=== PATIENT | female | born 1965 | race American Indian/Alaskan Native ===

== ENCOUNTER 2017-11-24 22:31 | Emergency (ER) | payer OTHER ==
[2017-11-24] MEDS ORDERED: NACL 0.9% 1000 ML 1,000 ML IV ONE (23:04)
[2017-11-24] MEDS ORDERED: ZOFRAN IV ONE (23:04)
[2017-11-24 23:25] LABS: Basophils # (Auto) 0.1 K/mm3 (0.0-0.1); Basophils % (Auto) 0.7 % (0.0-1.8); Hematocrit 38.9 % (30.3-42.9); Hemoglobin 12.9 gm/dl (10.1-14.3); Lymphocytes # (Auto) 1.5 K/mm3 (1.2-5.4); Lymphocytes % (Auto) 14.6 % (13.4-35.0); Mean Corpuscular HGB Conc 33 % (30-34); Mean Corpuscular Hemoglobin 27 pg (28-32); Mean Corpuscular Volume 83 fl (79-97); Monocytes # (Auto) 0.5 K/mm3 (0.0-0.8); Monocytes % (Auto) 4.6 % (0.0-7.3); Platelet Count 287 K/mm3 (140-440); Red Blood Count 4.72 M/mm3 (3.65-5.03); Red Cell Distribution Width 13.6 % (13.2-15.2)
[2017-11-24] MEDS ORDERED: MORPHINE IV ONE (23:43)
[2017-11-24] MEDS ORDERED: PROTONIX IV ONE (23:44)
[2017-11-24 23:46] LABS: Alanine Aminotransferase 9 units/L (7-56); Albumin 4.1 g/dL (3.9-5); BUN/Creatinine Ratio 18; Blood Urea Nitrogen 14 mg/dL (7-17); Calcium 9.3 mg/dL (8.4-10.2); Hemolysis Index 6; Lipase 14 units/L (13-60)
--- NOTE | 2017-11-24 23:57 | Emergency Department Report ---
ED N/V/D HPI - General Chief complaint: Nausea/Vomiting/Diarrhea Stated complaint: NAUSEA/VOMITING Time Seen by Provider: 11/24/17 22:39 Source: EMS Mode of arrival: Ambulatory Limitations: No Limitations - History of Present Illness Initial comments: 51 year old female with a past medical history asthma, diabetes, hypertension, fibromyalgia, chronic pain, and elevated cholesterol with previous hysterectomy presents to the hospital complaints of nausea, vomiting, and diarrhea 4 days. Patient was a generalized intermittent sharp pain rated at 9/10 intensity and worsened palpation. No alleviating factors. Patient complains of coffee ground emesis. She denies hematochezia, hematemesis, melena, fever, recent travel, or sick contacts. Patient was treating with Pepto-Bismol several days ago but then started taking ranitidine and Zofran without improvement. - Related Data Home Medications Medication Instructions Recorded Confirmed Last Taken glyBURIDE [Diabeta] 2.5 mg PO DAILY 09/15/13 01/23/14 10/08/13 metFORMIN [Glucophage] 500 mg PO BID 09/15/13 01/23/14 10/09/13 Previous Rx's Medication Instructions Recorded Last Taken Type glyBURIDE [Diabeta] 2.5 mg PO DAILY #30 tablet 01/23/14 Unknown Rx metFORMIN [Glucophage] 500 mg PO BID #60 tablet 01/23/14 Unknown Rx Ibuprofen [Motrin 600 MG tab] 600 mg PO Q8H PRN #30 tablet 04/26/16 Unknown Rx traMADol [Ultram 50 MG tab] 50 mg PO Q6HR PRN #16 tablet 04/26/16 Unknown Rx ALBUTEROL Inhaler [ProAir HFA 2 puff IH QID PRN #1 inha 08/18/16 Unknown Rx Inhaler] Clarithromycin [Biaxin] 500 mg PO BID #20 tab 08/18/16 Unknown Rx Fluconazole [Diflucan TAB] 150 mg PO ONCE PRN #1 tablet 08/18/16 Unknown Rx predniSONE [Deltasone] 50 mg PO QDAY #5 tab 08/18/16 Unknown Rx traMADol [Ultram 50 MG tab] 50 mg PO Q6HR PRN #16 tablet 08/18/16 Unknown Rx Loperamide [Imodium] 2 mg PO Q2HR PRN #20 capsule 11/25/17 Unknown Rx Ondansetron [Zofran Odt] 4 mg PO Q8HR PRN #20 tab.rapdis 11/25/17 Unknown Rx Promethazine [Phenergan] 25 mg [place] Q6HR PRN #30 supp.rect 11/25/17 Unknown Rx Allergies Allergy/AdvReac Type Severity Reaction Status Date / Time Penicillins Allergy Swelling Verified 08/18/16 10:06 ED Review of Systems ROS: Stated complaint: NAUSEA/VOMITING Other details as noted in HPI Comment: All other systems reviewed and negative Other: Constitutional: No fevers chills Eyes: No eye pain visual changes ENT: No ear pain or throat pain Neck: Denies pain Respiratory: Denies cough wheezing shortness of breath Cardiovascular: Denies chest pain, palpitations, syncope GI: As per HPI : Denies dysuria Musculoskeletal: Denies back pain Skin: Denies rash, lesions, erythema Neurologic: Denies headache, numbness, weakness Psychiatric: Denies suicidal ideation, hallucinations ED Past Medical Hx - Past Medical History Previous Medical History?: Yes Hx Hypertension: Yes Hx Diabetes: Yes Hx Asthma: Yes (childhood) Additional medical history: FIBROMYALGIA. chronic pain. HIGH CHOLESTEROL - Surgical History Past Surgical History?: Yes Hx Cholecystectomy: Yes (as per ct) Additional Surgical History: bilateral knee surgery. hysterectomy. bilateral foot surgery - Social History Smoking Status: Unknown if ever smoked - Medications Home Medications: Home Medications Medication Instructions Recorded Confirmed Last Taken Type glyBURIDE [Diabeta] 2.5 mg PO DAILY 09/15/13 01/23/14 10/08/13 History metFORMIN [Glucophage] 500 mg PO BID 09/15/13 01/23/14 10/09/13 History glyBURIDE [Diabeta] 2.5 mg PO DAILY #30 tablet 01/23/14 Unknown Rx metFORMIN [Glucophage] 500 mg PO BID #60 tablet 01/23/14 Unknown Rx Ibuprofen [Motrin 600 MG tab] 600 mg PO Q8H PRN #30 tablet 04/26/16 Unknown Rx traMADol [Ultram 50 MG tab] 50 mg PO Q6HR PRN #16 tablet 04/26/16 Unknown Rx ALBUTEROL Inhaler [ProAir HFA 2 puff IH QID PRN #1 inha 08/18/16 Unknown Rx Inhaler] Clarithromycin [Biaxin] 500 mg PO BID #20 tab 08/18/16 Unknown Rx Fluconazole [Diflucan TAB] 150 mg PO ONCE PRN #1 tablet 08/18/16 Unknown Rx predniSONE [Deltasone] 50 mg PO QDAY #5 tab 08/18/16 Unknown Rx traMADol [Ultram 50 MG tab] 50 mg PO Q6HR PRN #16 tablet 08/18/16 Unknown Rx Loperamide [Imodium] 2 mg PO Q2HR PRN #20 capsule 11/25/17 Unknown Rx Ondansetron [Zofran Odt] 4 mg PO Q8HR PRN #20 tab.rapdis 11/25/17 Unknown Rx Promethazine [Phenergan] 25 mg [place] Q6HR PRN #30 supp.rect 11/25/17 Unknown Rx ED Physical Exam - General Limitations: No Limitations - Other Other exam information: General: No limitations, patient is alert in no acute distress Head exam: Atraumatic, normocephalic Eyes exam: Normal appearance, nonicteric sclerae ENT: Moist mucous membrane, normal oropharynx Neck exam: Normal inspection, full range of motion Respiratory exam: Clear to auscultation bilateral, no wheezes, rales, crackles Cardiovascular: Normal rate and rhythm, normal heart sounds Abdomen: Soft, nondistended, generalized tenderness greatest in the epigastric area, with normal bowel sounds, no rebound, or guarding Extremity: Full range of motion normal inspection no deformity Back: Normal Inspection, full range of motion, no tenderness Neurologic: Alert, oriented x3, cranial nerves intact, no motor or sensory deficit Psychiatric: normal affect, normal mood Skin: Warm, dry, intact ED Course Vital Signs 11/24/17 11/24/17 11/24/17 22:40 22:45 22:53 Temperature Pulse Rate 87 96 H Respiratory 18 17 Rate Blood Pressure 139/80 139/80 O2 Sat by Pulse 99 99 98 Oximetry 11/24/17 11/24/17 11/24/17 22:56 23:00 23:15 Temperature 98.0 F Pulse Rate 87 81 81 Respiratory 18 11 L 11 L Rate Blood Pressure 139/80 154/81 151/80 O2 Sat by Pulse 99 98 98 Oximetry 11/24/17 11/24/17 11/24/17 23:21 23:30 23:45 Temperature Pulse Rate 75 95 H Respiratory 18 17 12 Rate Blood Pressure 166/84 176/77 O2 Sat by Pulse 99 99 100 Oximetry 11/25/17 11/25/17 11/25/17 00:00 00:15 02:16 Temperature Pulse Rate 83 110 H Respiratory 20 16 13 Rate Blood Pressure 184/82 184/82 129/70 O2 Sat by Pulse 99 Oximetry 11/25/17 11/25/17 11/25/17 02:30 02:45 03:14 Temperature 98.0 F Pulse Rate 113 H 118 H 118 H Respiratory 11 L 11 L 11 L Rate Blood Pressure 103/67 105/66 O2 Sat by Pulse Oximetry - Reevaluation(s) Reevaluation #1: 11/25/17 00:52 Treated with normal saline, morphine, Zofran, and Protonix 11/25/17 01:40 Patient's pain decreased from a 10-8 after receiving morphine 6 mg. Patient takes hydrocodone 10 mg at home for chronic pain and likely has a tolerance. Dilaudid 1 mg ordered. Patient still complains of some nausea but no vomiting noted. She complains of feeling "hot in the inside". IV fluids just started. Reglan and Benadryl ordered for additional nausea relief. Protonix order pending administration ED Medical Decision Making - Lab Data Result diagrams: 11/24/17 23:09 11/24/17 23:09 Lab Results 11/24/17 11/24/17 11/24/17 Range/Units 23:09 23:09 23:20 WBC 10.5 (4.5-11.0) K/mm3 RBC 4.72 (3.65-5.03) M/mm3 Hgb 12.9 (10.1-14.3) gm/dl Hct 38.9 (30.3-42.9) % MCV 83 (79-97) fl MCH 27 L (28-32) pg MCHC 33 (30-34) % RDW 13.6 (13.2-15.2) % Plt Count 287 (140-440) K/mm3 Lymph % (Auto) 14.6 (13.4-35.0) % [place] % (Auto) 4.6 (0.0-7.3) % Eos % (Auto) 0.0 (0.0-4.3) % Baso % (Auto) 0.7 (0.0-1.8) % Lymph # 1.5 (1.2-5.4) K/mm3 [place] # 0.5 (0.0-0.8) K/mm3 Eos # 0.0 (0.0-0.4) K/mm3 Baso # 0.1 (0.0-0.1) K/mm3 Seg Neutrophils % 80.1 H (40.0-70.0) % Seg Neutrophils # 8.4 H (1.8-7.7) K/mm3 Sodium 139 (137-145) mmol/L Potassium 4.4 (3.6-5.0) mmol/L Chloride 95.2 L (98-107) mmol/L Carbon Dioxide 23 (22-30) mmol/L Anion Gap 25 mmol/L BUN 14 (7-17) mg/dL Creatinine 0.8 (0.7-1.2) mg/dL Estimated GFR > 60 ml/min BUN/Creatinine Ratio 18 % Glucose 383 H (65-100) mg/dL POC Glucose 354 H (70-105) Calcium 9.3 (8.4-10.2) mg/dL Total Bilirubin 0.30 (0.1-1.2) mg/dL AST 10 (5-40) units/L ALT 9 (7-56) units/L Alkaline Phosphatase 89 (35-129) units/L Total Protein 7.7 (6.3-8.2) g/dL Albumin 4.1 (3.9-5) g/dL Albumin/Globulin Ratio 1.1 % Lipase 14 (13-60) units/L - Radiology Data Radiology results: report reviewed CT of the pelvis IV contrast: Prior cholecystectomy. No choledocholithiasis. Diverticula and sigmoid and left colon. No diverticulitis, colitis obstruction or mass. Appendix is normal. Previous hysterectomy. Liver enlarged and fatty No other acute findings. - Medical Decision Making Patient has signs and symptoms of acute gastroenteritis with associated pain or be treated symptomatically. Feels better ED treatment tolerating by mouth Patient's pain and glucose improved prior to discharge - Differential Diagnosis gastritis, hepatitis, appendicitis, gastritis, colitis, biliary colic Critical Care Time: No Critical care attestation.: If time is entered above; I have spent that time in minutes in the direct care of this critically ill patient, excluding procedure time. ED Disposition Clinical Impression: Gastroenteritis, Diabetes Disposition: - TO HOME OR SELFCARE Is pt being admited?: No Does the pt Need Aspirin: No Condition: Stable Instructions: Diabetes Mellitus Type 2 in Adults (ED), Gastroenteritis (ED) Additional Instructions: Take the medication as prescribed. Follow-up with your doctor or the doctor provided. Return if symptoms worsen as indicated by his discharge instructions. Prescriptions: Loperamide [Imodium] 2 mg PO Q2HR PRN #20 capsule PRN Reason: Diarrhea Ondansetron [Zofran Odt] 4 mg PO Q8HR PRN #20 tab.rapdis PRN Reason: Nausea And Vomiting Promethazine [Phenergan] 25 mg [place] Q6HR PRN #30 supp.rect PRN Reason: Nausea And Vomiting Referrals: SLADE SKINNER MD [Staff Physician] - 3-5 Days [facility] [Provider Group] - 3-5 Days Time of Disposition: 03:10 (to be d/figueroa once meds complete)
--- NOTE | 2017-11-25 01:21 | Cat Scan Report ---
FINAL REPORT PROCEDURE: CT ABDOMEN PELVIS W CON TECHNIQUE: Computerized axial tomography of the abdomen and pelvis was performed after the IV injection of iodinated nonionic contrast. HISTORY: abd pain n,v,d COMPARISON: No prior studies are available for comparison. FINDINGS: Visualized lower thorax: No significant abnormality. Liver: The liver is enlarged and fatty. There is no mass.. Spleen: Normal size and attenuation. Gallbladder and biliary system: There has been a cholecystectomy. The common bile duct is normal in mildly dilated. There is no choledocholithiasis.. Pancreas: Normal. Adrenals: Normal. Kidneys: Normal. GI tract: There are diverticula of the sigmoid and left colon. There is no diverticulitis, colitis, obstruction or mass. The appendix is normal.. Lymph nodes and mesentery: Normal. Vasculature: Normal. Bladder: Normal. Reproductive organs: There has been a hysterectomy. Peritoneum: There is no ascites or free air, abscess or adenopathy.. Musculoskeletal structures: No significant abnormality. Other: None. IMPRESSION: The liver is enlarged and fatty. There is no mass.. There has been a cholecystectomy. The common bile duct is normal in mildly dilated. There is no choledocholithiasis.. There are diverticula of the sigmoid and left colon. There is no diverticulitis, colitis, obstruction or mass. The appendix is normal.. There has been a hysterectomy. There is no ascites or free air, abscess or adenopathy.
[2017-11-25] MEDS ORDERED: BENADRYL IV ONE (01:39)
[2017-11-25] MEDS ORDERED: DILAUDID IV ONE (01:39)
[2017-11-25] MEDS ORDERED: REGLAN IV ONE (01:39)
[2017-11-25] MEDS ORDERED: IMODIUM PO ONE (01:43)
[2017-11-25 03:00] VITALS: BP 105/66
== END 2017-11-25 03:15 | disposition home or self-care (01) ==
LOC: ED 22:31
DX: K21.9 Gastro-esophageal reflux disease without esophagitis (principal); E11.9 Type 2 diabetes mellitus without complications; I10 Essential (primary) hypertension; J45.909 Unspecified asthma, uncomplicated; G89.29 Other chronic pain; E78.5 Hyperlipidemia, unspecified; Z90.49 Acquired absence of other specified parts of digestive tract; Z98.890 Other specified postprocedural states; Z88.0 Allergy status to penicillin
CPT/HCPCS: 36415; 74177; 80053; 82962; 83690; 85025; 96361; 96374; 96375; 96376; 99284; C9113; J1170; J1200; J2270; J2405; J2765; J7030; Q9967; J1815

== ENCOUNTER 2017-11-26 11:14 | Emergency (ER) | payer OTHER ==
--- NOTE | 2017-11-26 11:33 | Emergency Department Report ---
ED General Adult HPI - General Chief complaint: Abdominal Pain Stated complaint: NAUSEA/VOMITING Time Seen by Provider: 11/26/17 11:32 Source: patient, EMS (ems notes not available at time of chart dictation), RN notes reviewed, old records reviewed Mode of arrival: Stretcher Limitations: No Limitations - History of Present Illness Initial comments: This is a 51-year-old female who is previously unknown to this provider, patient has a past medical history of diabetes, recently seen in the ER a few days ago for abdominal pain nausea and vomiting, had extensive workup done, including a CT scan of the abdomen and pelvis which was negative, unremarkable laboratory studies. Patient reports multiple episodes of nonbloody, nonbilious emesis. Denies fevers and chills. Has no chest pain or shortness of breath. Has diffuse abdominal pain and cramping, it increases with palpation, and it decreases with rest. It also decreased with Reglan, hydromorphone. EMS documentation is reviewed and appreciated. -: Gradual, days(s) Location: abdomen Quality: stabbing Consistency: constant Improves with: medication, rest Worsens with: eating Associated Symptoms: loss of appetite, malaise, nausea/vomiting, weakness. denies: confusion, chest pain, cough, diaphoresis - Related Data Home Medications Medication Instructions Recorded Confirmed Last Taken glyBURIDE [Diabeta] 2.5 mg PO DAILY 09/15/13 01/23/14 10/08/13 metFORMIN [Glucophage] 500 mg PO BID 09/15/13 01/23/14 10/09/13 Previous Rx's Medication Instructions Recorded Last Taken Type glyBURIDE [Diabeta] 2.5 mg PO DAILY #30 tablet 01/23/14 Unknown Rx metFORMIN [Glucophage] 500 mg PO BID #60 tablet 01/23/14 Unknown Rx Ibuprofen [Motrin 600 MG tab] 600 mg PO Q8H PRN #30 tablet 04/26/16 Unknown Rx traMADol [Ultram 50 MG tab] 50 mg PO Q6HR PRN #16 tablet 04/26/16 Unknown Rx ALBUTEROL Inhaler [ProAir HFA 2 puff IH QID PRN #1 inha 08/18/16 Unknown Rx Inhaler] Clarithromycin [Biaxin] 500 mg PO BID #20 tab 08/18/16 Unknown Rx Fluconazole [Diflucan TAB] 150 mg PO ONCE PRN #1 tablet 08/18/16 Unknown Rx predniSONE [Deltasone] 50 mg PO QDAY #5 tab 08/18/16 Unknown Rx traMADol [Ultram 50 MG tab] 50 mg PO Q6HR PRN #16 tablet 08/18/16 Unknown Rx Loperamide [Imodium] 2 mg PO Q2HR PRN #20 capsule 11/25/17 Unknown Rx Ondansetron [Zofran Odt] 4 mg PO Q8HR PRN #20 tab.rapdis 11/25/17 Unknown Rx Promethazine [Phenergan] 25 mg [place] Q6HR PRN #30 supp.rect 11/25/17 Unknown Rx Dicyclomine [Bentyl] 10 mg PO QID PRN #20 capsule 11/26/17 Unknown Rx Metoclopramide [Reglan] 10 mg PO QID PRN #30 tablet 11/26/17 Unknown Rx Allergies Allergy/AdvReac Type Severity Reaction Status Date / Time Penicillins Allergy Swelling Verified 08/18/16 10:06 ED Review of Systems ROS: Stated complaint: NAUSEA/VOMITING Other details as noted in HPI ED Past Medical Hx - Past Medical History Previous Medical History?: Yes Hx Hypertension: Yes Hx Diabetes: Yes Hx Asthma: Yes (childhood) Additional medical history: FIBROMYALGIA. chronic pain. HIGH CHOLESTEROL - Surgical History Hx Cholecystectomy: Yes (as per ct) Additional Surgical History: bilateral knee surgery. hysterectomy. bilateral foot surgery - Social History Smoking Status: Never Smoker Substance Use Type: None - Medications Home Medications: Home Medications Medication Instructions Recorded Confirmed Last Taken Type glyBURIDE [Diabeta] 2.5 mg PO DAILY 09/15/13 01/23/14 10/08/13 History metFORMIN [Glucophage] 500 mg PO BID 09/15/13 01/23/14 10/09/13 History glyBURIDE [Diabeta] 2.5 mg PO DAILY #30 tablet 01/23/14 Unknown Rx metFORMIN [Glucophage] 500 mg PO BID #60 tablet 01/23/14 Unknown Rx Ibuprofen [Motrin 600 MG tab] 600 mg PO Q8H PRN #30 tablet 04/26/16 Unknown Rx traMADol [Ultram 50 MG tab] 50 mg PO Q6HR PRN #16 tablet 04/26/16 Unknown Rx ALBUTEROL Inhaler [ProAir HFA 2 puff IH QID PRN #1 inha 08/18/16 Unknown Rx Inhaler] Clarithromycin [Biaxin] 500 mg PO BID #20 tab 08/18/16 Unknown Rx Fluconazole [Diflucan TAB] 150 mg PO ONCE PRN #1 tablet 08/18/16 Unknown Rx predniSONE [Deltasone] 50 mg PO QDAY #5 tab 08/18/16 Unknown Rx traMADol [Ultram 50 MG tab] 50 mg PO Q6HR PRN #16 tablet 08/18/16 Unknown Rx Loperamide [Imodium] 2 mg PO Q2HR PRN #20 capsule 11/25/17 Unknown Rx Ondansetron [Zofran Odt] 4 mg PO Q8HR PRN #20 tab.rapdis 11/25/17 Unknown Rx Promethazine [Phenergan] 25 mg [place] Q6HR PRN #30 supp.rect 11/25/17 Unknown Rx Dicyclomine [Bentyl] 10 mg PO QID PRN #20 capsule 11/26/17 Unknown Rx Metoclopramide [Reglan] 10 mg PO QID PRN #30 tablet 11/26/17 Unknown Rx ED Physical Exam - General Limitations: No Limitations General appearance: alert, in distress, obese - Head Head exam: Present: atraumatic, normocephalic - Eye Eye exam: Present: normal appearance, EOMI - ENT ENT exam: Present: normal exam, normal orophraynx, mucous membranes moist, normal external ear exam - Neck Neck exam: Present: normal inspection, full ROM - Respiratory Respiratory exam: Present: normal lung sounds bilaterally. Absent: respiratory distress - Cardiovascular Cardiovascular Exam: Present: normal rhythm, tachycardia, normal heart sounds. Absent: systolic murmur, diastolic murmur, rubs, gallop - GI/Abdominal GI/Abdominal exam: Present: soft, normal bowel sounds, other (mild diffuse abdominal wall tenderness, no rebound, guarding or peritoneal signs). Absent: distended, guarding, rebound, rigid, pulsatile mass - Extremities Exam Extremities exam: Present: normal inspection, full ROM, normal capillary refill. Absent: pedal edema, joint swelling, calf tenderness - Back Exam Back exam: Present: normal inspection, full ROM. Absent: tenderness, CVA tenderness (R), paraspinal tenderness, vertebral tenderness - Neurological Exam Neurological exam: Present: alert, oriented X3, CN II-XII intact, other ( Extraocular movements intact. Tongue midline. No facial droop. Facial sensation intact to light touch in the V1, V2, V3 distribution bilaterally. 5 and 5 strength in 4 extremities.. Sensation is intact to light touch in 4 extremities.). Absent: motor sensory deficit - Psychiatric Psychiatric exam: Present: anxious - Skin Skin exam: Present: warm, dry, intact, normal color. Absent: rash ED Course Vital Signs 11/26/17 11/26/17 11/26/17 11:15 12:12 12:20 Temperature 99.6 F Pulse Rate 120 H 78 Respiratory 19 16 Rate Blood Pressure 158/100 Blood Pressure 167/76 [Left] O2 Sat by Pulse 87 Oximetry ED Medical Decision Making - Lab Data Result diagrams: 11/26/17 11:36 11/26/17 11:36 Vital Signs 11/26/17 11/26/17 11/26/17 11:15 12:12 12:20 Temperature 99.6 F Pulse Rate 120 H 78 Respiratory 19 16 Rate Blood Pressure 158/100 Blood Pressure 167/76 [Left] O2 Sat by Pulse 87 Oximetry Labs 11/26/17 11/26/17 11/26/17 11:36 11:36 11:36 WBC 8.7 RBC 4.74 Hgb 12.8 Hct 38.7 MCV 82 MCH 27 L MCHC 33 RDW 13.7 Plt Count 303 Lymph % (Auto) 35.8 H [place] % (Auto) 6.5 Eos % (Auto) 0.6 Baso % (Auto) 0.6 Lymph # 3.1 [place] # 0.6 Eos # 0.1 Baso # 0.1 Seg Neutrophils % 56.5 Seg Neutrophils # 4.9 PT 13.5 INR 0.98 VBG pH Sodium 140 Potassium 3.5 L D Chloride 98.3 Carbon Dioxide 24 Anion Gap 21 BUN 13 Creatinine 0.8 Estimated GFR > 60 BUN/Creatinine Ratio 16 Glucose 331 H Lactic Acid Calcium 9.1 Total Bilirubin 0.40 AST 16 ALT 10 Alkaline Phosphatase 81 Total Protein 8.0 Albumin 4.1 Albumin/Globulin Ratio 1.1 Lipase 25 11/26/17 11/26/17 11:36 11:36 WBC RBC Hgb Hct MCV MCH MCHC RDW Plt Count Lymph % (Auto) [place] % (Auto) Eos % (Auto) Baso % (Auto) Lymph # [place] # Eos # Baso # Seg Neutrophils % Seg Neutrophils # PT INR VBG pH 7.469 H Sodium Potassium Chloride Carbon Dioxide Anion Gap BUN Creatinine Estimated GFR BUN/Creatinine Ratio Glucose Lactic Acid 2.30 H* Calcium Total Bilirubin AST ALT Alkaline Phosphatase Total Protein Albumin Albumin/Globulin Ratio Lipase - EKG Data 11/26/17 13:28 Normal sinus, 74 bpm, left axis deviation, QTC within normal limits, abnormal EKG, not consistent with ST elevation myocardial infarction, unchanged from prior from August 2013. - Radiology Data Radiology results: report reviewed, image reviewed port Referring Physician: TAISHA PALMA Patient Name: AMERICA MIRANDA Date of : 1965 Sex: Female Report Date: 2017-11-24 Report Status: Finalized Findings [facility] [address] [place] [address] Cat Scan Report Signed Patient: AMERICA MIRANDA MR#: [id number] : 1965 Acct:[id number] Age/Sex: 51 / F ADM Date: 11/24/17 Loc: ED Attending Dr: Ordering Physician: TAISHA PALMA MD Date of Service: 11/24/17 Procedure(s): CT abdomen pelvis w con Accession Number(s): [id number] cc: TAISHA PALMA MD FINAL REPORT PROCEDURE: CT ABDOMEN PELVIS W CON TECHNIQUE: Computerized axial tomography of the abdomen and pelvis was performed after the IV injection of iodinated nonionic contrast. HISTORY: abd pain n,v,d COMPARISON: No prior studies are available for comparison. FINDINGS: Visualized lower thorax: No significant abnormality. Liver: The liver is enlarged and fatty. There is no mass.. Spleen: Normal size and attenuation. Gallbladder and biliary system: There has been a cholecystectomy. The common bile duct is normal in mildly dilated. There is no choledocholithiasis.. Pancreas: Normal. Adrenals: Normal. Kidneys: Normal. GI tract: There are diverticula of the sigmoid and left colon. There is no diverticulitis, colitis, obstruction or mass. The appendix is normal.. Lymph nodes and mesentery: Normal. Vasculature: Normal. Bladder: Normal. Reproductive organs: There has been a hysterectomy. Peritoneum: There is no ascites or free air, abscess or adenopathy.. Musculoskeletal structures: No significant abnormality. Other: None. IMPRESSION: The liver is enlarged and fatty. There is no mass.. There has been a cholecystectomy. The common bile duct is normal in mildly dilated. There is no choledocholithiasis.. There are diverticula of the sigmoid and left colon. There is no diverticulitis, colitis, obstruction or mass. The appendix is normal.. There has been a hysterectomy. There is no ascites or free air, abscess or adenopathy. Transcribed By: CO Dictated By: CHERRY CANCINO MD Electronically Authenticated By: CHERRY CANCINO MD Signed Date/Time: 11/24/172117 DD/ 17 TD/TT: 11/24/172117 - Medical Decision Making Differential diagnosis, including but not limited to: Diabetic gastroparesis, Benign Hyperemesis Syndrome, Dehydration, Electrolyte Derangements Assessment and plan: 51-year-old female with recurrent nausea, vomiting and abdominal cramping. Patient treated aggressively with hydromorphone, and Reglan and IV fluids. Her tachycardia resolved, and she was able to tolerate liquid feeds. Her EKG was unchanged from prior, and her laboratory studies were also unremarkable and basically unchanged from prior. Has a slightly elevated lactic acid level, this may be secondary to dehydration as well as tourniquet time. Patient was instructed that she most likely has diabetic gastroparesis, that she will need to follow up with outpatient gastroenterology. She will be discharged with appropriate non-narcotic pain medication, nausea medication and instructed to follow up as an outpatient. Return precautions are reviewed. Critical care attestation.: If time is entered above; I have spent that time in minutes in the direct care of this critically ill patient, excluding procedure time. ED Disposition Clinical Impression: Abdominal pain Disposition: DC-01 TO HOME OR SELFCARE Is pt being admited?: No Does the pt Need Aspirin: No Condition: Stable Instructions: Acute Nausea and Vomiting (ED) Additional Instructions: As we discussed, symptoms likely coming from diabetic gastroparesis. However, patient will need to follow up with outpatient gastroenterology to confirm the diagnosis. take The pain medication, nausea medication as directed. Follow-up with the listed device test engineer within the next 2 weeks. Return to the ER right away with you pain, worsened pain, migration of pain, fevers, chills, lethargy, irritability, projectile vomiting, confusion, change in mental status, inability to tolerate liquid feeds. Avoid consumption of heavy and spicy foods. Please note that blood pressure and blood sugar were both elevated in the emergency department. These and to follow up by primary care doctor within the next month. Long-term complications of hypertension and elevated blood pressure includes stroke, heart attack, disability, , paralysis, permanent loss of quality of life. Therefore, it is very important to follow-up with outpatient primary care as directed. Prescriptions: Dicyclomine [Bentyl] 10 mg PO QID PRN #20 capsule PRN Reason: Pain Metoclopramide [Reglan] 10 mg PO QID PRN #30 tablet PRN Reason: Nausea Referrals: PRIMARY CARE, [Primary Care Provider] - 3-5 Days RONNIE BABB MD [Staff Physician] - 3-5 Days NILESH GOMEZ MD [Staff Physician] - 3-5 Days
[2017-11-26] MEDS ORDERED: DILAUDID IV ONE (11:39)
[2017-11-26] MEDS ORDERED: REGLAN IV ONE (11:39)
[2017-11-26] MEDS ORDERED: NACL 0.9% 1000 ML 1,000 ML IV ONE (11:39)
[2017-11-26 12:01] LABS: Basophils # (Auto) 0.1 K/mm3 (0.0-0.1); Basophils % (Auto) 0.6 % (0.0-1.8); Eosinophils # (Auto) 0.1 K/mm3 (0.0-0.4); Eosinophils % (Auto) 0.6 % (0.0-4.3); Hematocrit 38.7 % (30.3-42.9); Hemoglobin 12.8 gm/dl (10.1-14.3); Lymphocytes # (Auto) 3.1 K/mm3 (1.2-5.4); Lymphocytes % (Auto) 35.8 % (13.4-35.0); Mean Corpuscular HGB Conc 33 % (30-34); Mean Corpuscular Hemoglobin 27 pg (28-32); Mean Corpuscular Volume 82 fl (79-97); Monocytes # (Auto) 0.6 K/mm3 (0.0-0.8); Monocytes % (Auto) 6.5 % (0.0-7.3); Platelet Count 303 K/mm3 (140-440); Red Blood Count 4.74 M/mm3 (3.65-5.03); Red Cell Distribution Width 13.7 % (13.2-15.2)
[2017-11-26 12:11] LABS: INR 0.98 (0.87-1.13)
[2017-11-26 12:15] LABS: Alanine Aminotransferase 10 units/L (7-56); Albumin 4.1 g/dL (3.9-5); BUN/Creatinine Ratio 16; Blood Urea Nitrogen 13 mg/dL (7-17); Calcium 9.1 mg/dL (8.4-10.2); Hemolysis Index 4; Lipase 25 units/L (13-60)
[2017-11-26] MEDS ORDERED: ROXICODONE PO ONE (12:40)
[2017-11-26] MEDS ORDERED: ZOFRAN IV ONE (13:42)
[2017-11-26] MEDS ORDERED: DILAUDID IV STA (13:42)
[2017-11-26 14:19] VITALS: BP 138/70
== END 2017-11-26 14:20 | disposition home or self-care (01) ==
LOC: ED 11:14
DX: R10.84 Generalized abdominal pain (principal); R11.2 Nausea with vomiting, unspecified; R63.0 Anorexia; R53.81 Other malaise; I10 Essential (primary) hypertension; E11.9 Type 2 diabetes mellitus without complications; J45.909 Unspecified asthma, uncomplicated; M79.7 Fibromyalgia; E78.00 Pure hypercholesterolemia, unspecified; Z90.710 Acquired absence of both cervix and uterus; Z90.49 Acquired absence of other specified parts of digestive tract; Z88.0 Allergy status to penicillin
CPT/HCPCS: 36415; 80053; 82140; 82805; 82962; 83690; 85025; 85610; 93005; 93010; 96361; 96374; 96375; 96376; 99284; J1170; J2405; J2765; J7030

== ENCOUNTER 2018-08-29 17:18 | Emergency (ER) | payer SELFPAY ==
[2018-08-29 17:34] VITALS: BP 130/77
[2018-08-29] MEDS ORDERED: REGLAN IV STA (19:18)
[2018-08-29] MEDS ORDERED: NACL 0.9% 1000 ML 1,000 ML IV ONE (19:19)
[2018-08-29] MEDS ORDERED: ZOFRAN IV STA (19:22)
[2018-08-29 19:37] LABS: Basophils # (Auto) 0.1 K/mm3 (0.0-0.1); Eosinophils # (Auto) 0.1 K/mm3 (0.0-0.4); Eosinophils % (Auto) 0.6 % (0.0-4.3); Hemoglobin 12.9 gm/dl (10.1-14.3); Lymphocytes # (Auto) 2.5 K/mm3 (1.2-5.4); Lymphocytes % (Auto) 28.6 % (13.4-35.0); Mean Corpuscular HGB Conc 34 % (30-34); Mean Corpuscular Hemoglobin 28 pg (28-32); Mean Corpuscular Volume 84 fl (79-97); Monocytes # (Auto) 0.6 K/mm3 (0.0-0.8); Monocytes % (Auto) 7.1 % (0.0-7.3); Platelet Count 303 K/mm3 (140-440); Red Blood Count 4.55 M/mm3 (3.65-5.03); Red Cell Distribution Width 13.5 % (13.2-15.2)
[2018-08-29 19:55] LABS: Albumin 3.5 g/dL (3.9-5); BUN/Creatinine Ratio 16; Blood Urea Nitrogen 11 mg/dL (7-17); Calcium 9.1 mg/dL (8.4-10.2); Hemolysis Index 270; Lipase 10 units/L (13-60)
--- NOTE | 2018-08-29 20:42 | XRay Report ---
FINAL REPORT EXAM: XR CHEST ROUTINE 2V HISTORY: cough TECHNIQUE: PA and lateral views of the chest Comparison: None FINDINGS: There is bilateral hypoinflation. There is no evidence of focal infiltrate, pneumothorax or pleural fluid collection. The cardiomediastinal silhouette is normal in appearance. The bony structures are unremarkable. Surgical clips in the right upper quadrant are consistent with previous cholecystectomy. IMPRESSION: 1. Hypoinflation. 2. No evidence of an acute pulmonary process.
[2018-08-29 21:26] LABS: Alanine Aminotransferase 9 units/L (7-56)
[2018-08-29 22:08] LABS: Bacteria,Urine 2+ /HPF (Negative); Bilirubin,Urine NEG (Negative); Blood,Urine MOD (Negative); Mucus,Urine 1+ /HPF; Urobilinogen,Urine < 2.0 mg/dL (<2.0)
[2018-08-29 22:09] LABS: Color,Urine Yellow (Yellow); WBC,Urine > 182.0 /HPF (0.0-6.0)
[2018-08-29] MEDS ORDERED: LEVAQUIN PO ONE (22:34)
--- NOTE | 2018-08-30 05:30 | Emergency Department Report ---
ED Chest Pain HPI - General Chief Complaint: Chest Pain Stated Complaint: CHEST PAIN, SOB Time Seen by Provider: 08/29/18 19:14 Source: patient Mode of arrival: Ambulatory Limitations: No Limitations - History of Present Illness Initial Comments: 52-year-old obese -[place] female. Past medical history of hypertension , diabetes, and hypoglycemic-related gastroparesis presents to emergency department complaining of nausea and vomiting 6 started today. Reports having issues control her blood sugars over the last 4 days, resulting in episodes of gastroparesis and nausea. She reports having some some chest pain with vomiting. Reports no fevers, chills or sweats, palpitations, hemoptysis, hematemesis, hematochezia. Reports taking her medications as prescribed for the most part MD Complaint: chest pain Onset: during rest Pain Radiation: none Severity: mild Severity scale (0 -10): 4 Consistency: constant Improves With: nothing Worsens With: nothing re: nausea Treatments Prior to Arrival: none - Related Data Home Medications Medication Instructions Recorded Confirmed Last Taken glyBURIDE [Diabeta] 2.5 mg PO DAILY 09/15/13 01/23/14 10/08/13 metFORMIN [Glucophage] 500 mg PO BID 09/15/13 01/23/14 10/09/13 Previous Rx's Medication Instructions Recorded Last Taken Type glyBURIDE [Diabeta] 2.5 mg PO DAILY #30 tablet 01/23/14 Unknown Rx metFORMIN [Glucophage] 500 mg PO BID #60 tablet 01/23/14 Unknown Rx Ibuprofen [Motrin 600 MG tab] 600 mg PO Q8H PRN #30 tablet 04/26/16 Unknown Rx traMADol [Ultram 50 MG tab] 50 mg PO Q6HR PRN #16 tablet 04/26/16 Unknown Rx ALBUTEROL Inhaler (OR & NICU) 2 puff IH QID PRN #1 inha 08/18/16 Unknown Rx [ProAir HFA Inhaler] Clarithromycin [Biaxin] 500 mg PO BID #20 tab 08/18/16 Unknown Rx Fluconazole [Diflucan TAB] 150 mg PO ONCE PRN #1 tablet 08/18/16 Unknown Rx predniSONE [Deltasone] 50 mg PO QDAY #5 tab 08/18/16 Unknown Rx traMADol [Ultram 50 MG tab] 50 mg PO Q6HR PRN #16 tablet 08/18/16 Unknown Rx Loperamide [Imodium] 2 mg PO Q2HR PRN #20 capsule 11/25/17 Unknown Rx Ondansetron [Zofran Odt] 4 mg PO Q8HR PRN #20 tab.rapdis 11/25/17 Unknown Rx Promethazine [Phenergan] 25 mg [place] Q6HR PRN #30 supp.rect 11/25/17 Unknown Rx Dicyclomine [Bentyl] 10 mg PO QID PRN #20 capsule 11/26/17 Unknown Rx Metoclopramide [Reglan] 10 mg PO QID PRN #30 tablet 11/26/17 Unknown Rx Metoclopramide [Reglan] 10 mg PO TID #20 tab 08/30/18 Unknown Rx Nitrofurantoin Monohyd/M-Cryst 100 mg PO BID #20 capsule 08/30/18 Unknown Rx [Macrobid 100 mg Capsule] Allergies Allergy/AdvReac Type Severity Reaction Status Date / Time Penicillins Allergy Swelling Verified 08/29/18 17:28 Heart Score - HEART Score History: Slightly suspicious EKG: Non-specific Age: 45-65 Risk factors: 1-2 risk factors Troponin: < normal limit HEART Score: 3 ED Review of Systems ROS: Stated complaint: CHEST PAIN, SOB Other details as noted in HPI Constitutional: denies: chills, fever Eyes: denies: eye pain, eye discharge, vision change ENT: denies: ear pain, throat pain Respiratory: denies: cough, shortness of breath, wheezing Cardiovascular: denies: chest pain, palpitations Endocrine: no symptoms reported Gastrointestinal: nausea, vomiting. denies: abdominal pain, diarrhea Genitourinary: denies: urgency, dysuria, discharge Musculoskeletal: denies: back pain, joint swelling, arthralgia Skin: denies: rash, lesions Neurological: denies: headache, weakness, paresthesias Psychiatric: denies: anxiety, depression Hematological/Lymphatic: denies: easy bleeding, easy bruising ED Past Medical Hx - Past Medical History Hx Hypertension: Yes Hx Diabetes: Yes Hx Asthma: Yes (childhood) Additional medical history: FIBROMYALGIA. chronic pain. HIGH CHOLESTEROL. gastroparesis - Surgical History Hx Cholecystectomy: Yes Additional Surgical History: bilateral knee surgery. hysterectomy. bilateral foot surgery - Social History Smoking Status: Never Smoker Substance Use Type: None - Medications Home Medications: Home Medications Medication Instructions Recorded Confirmed Last Taken Type glyBURIDE [Diabeta] 2.5 mg PO DAILY 09/15/13 01/23/14 10/08/13 History metFORMIN [Glucophage] 500 mg PO BID 09/15/13 01/23/14 10/09/13 History glyBURIDE [Diabeta] 2.5 mg PO DAILY #30 tablet 01/23/14 Unknown Rx metFORMIN [Glucophage] 500 mg PO BID #60 tablet 01/23/14 Unknown Rx Ibuprofen [Motrin 600 MG tab] 600 mg PO Q8H PRN #30 tablet 04/26/16 Unknown Rx traMADol [Ultram 50 MG tab] 50 mg PO Q6HR PRN #16 tablet 04/26/16 Unknown Rx ALBUTEROL Inhaler (OR & NICU) 2 puff IH QID PRN #1 inha 08/18/16 Unknown Rx [ProAir HFA Inhaler] Clarithromycin [Biaxin] 500 mg PO BID #20 tab 08/18/16 Unknown Rx Fluconazole [Diflucan TAB] 150 mg PO ONCE PRN #1 tablet 08/18/16 Unknown Rx predniSONE [Deltasone] 50 mg PO QDAY #5 tab 08/18/16 Unknown Rx traMADol [Ultram 50 MG tab] 50 mg PO Q6HR PRN #16 tablet 08/18/16 Unknown Rx Loperamide [Imodium] 2 mg PO Q2HR PRN #20 capsule 11/25/17 Unknown Rx Ondansetron [Zofran Odt] 4 mg PO Q8HR PRN #20 tab.rapdis 11/25/17 Unknown Rx Promethazine [Phenergan] 25 mg [place] Q6HR PRN #30 supp.rect 11/25/17 Unknown Rx Dicyclomine [Bentyl] 10 mg PO QID PRN #20 capsule 11/26/17 Unknown Rx Metoclopramide [Reglan] 10 mg PO QID PRN #30 tablet 11/26/17 Unknown Rx Metoclopramide [Reglan] 10 mg PO TID #20 tab 08/30/18 Unknown Rx Nitrofurantoin Monohyd/M-Cryst 100 mg PO BID #20 capsule 08/30/18 Unknown Rx [Macrobid 100 mg Capsule] ED Physical Exam - General Limitations: No Limitations General appearance: alert, in no apparent distress - Head Head exam: Present: atraumatic, normocephalic - Eye Eye exam: Present: normal appearance Pupils: Present: normal accommodation - ENT ENT exam: Present: mucous membranes moist - Neck Neck exam: Present: normal inspection - Respiratory Respiratory exam: Present: normal lung sounds bilaterally. Absent: respiratory distress, wheezes, rales - Cardiovascular Cardiovascular Exam: Present: normal rhythm, tachycardia. Absent: systolic murmur, diastolic murmur, rubs, gallop - GI/Abdominal GI/Abdominal exam: Present: soft, normal bowel sounds - Extremities Exam Extremities exam: Present: normal inspection, full ROM - Back Exam Back exam: Present: normal inspection, full ROM - Neurological Exam Neurological exam: Present: alert, oriented X3, CN II-XII intact - Psychiatric Psychiatric exam: Present: normal affect, normal mood - Skin Skin exam: Present: warm, dry, intact, normal color. Absent: rash ED Course Vital Signs 08/29/18 08/30/18 17:28 00:42 Temperature 98.1 F Pulse Rate 120 H 96 H Respiratory 20 16 Rate Blood Pressure 130/77 O2 Sat by Pulse 96 97 Oximetry ED Medical Decision Making - Lab Data Result diagrams: 08/29/18 19:26 08/29/18 22:44 - EKG Data EKG shows normal: sinus rhythm - EKG Data When compared to previous EKG there are: no significant change - Medical Decision Making Troponins were negative. Reevaluation of her potassium proved to be negative as defers reviewed hemolysis. A long discussion with patient and her about diabetes and proper eating. Also discuss insulin utilization for improved control. No episodes of vomiting witnessed while in the emergency department, not nauseated, has not been improved with the current medications provided. No pain at present. No shortness of breath. Heart rate improved to the 90s. Critical care attestation.: If time is entered above; I have spent that time in minutes in the direct care of this critically ill patient, excluding procedure time. ED Disposition Clinical Impression: Vomiting, Dehydration Disposition: DC-01 TO HOME OR SELFCARE Is pt being admited?: No Does the pt Need Aspirin: No Condition: Stable Instructions: Dehydration (ED), Diabetic Hyperglycemia (ED), Urinary Tract Infection in Children (ED) Prescriptions: Metoclopramide [Reglan] 10 mg PO TID #20 tab Nitrofurantoin Monohyd/M-Cryst [Macrobid 100 mg Capsule] 100 mg PO BID #20 capsule Referrals: PRIMARY CARE, [Primary Care Provider] - 3-5 Days
== END 2018-08-30 00:42 | disposition home or self-care (01) ==
LOC: ED 17:18
DX: E86.0 Dehydration (principal); I10 Essential (primary) hypertension; E11.9 Type 2 diabetes mellitus without complications; J45.909 Unspecified asthma, uncomplicated; M79.7 Fibromyalgia; R11.10 Vomiting, unspecified; E78.00 Pure hypercholesterolemia, unspecified; Z90.710 Acquired absence of both cervix and uterus; Z88.0 Allergy status to penicillin; Z79.4 Long term (current) use of insulin
CPT/HCPCS: 36415; 71046; 80053; 81001; 82962; 83690; 84132; 84484; 85025; 93005; 93010; 96361; 96374; 96375; 99284; J2405; J2765; J7030

== ENCOUNTER 2018-12-23 21:44 | Emergency (ER) | payer OTHER ==
[2018-12-24] MEDS ORDERED: NORCO 5/325 PO STA (01:18)
--- NOTE | 2018-12-24 02:14 | XRay Report ---
FINAL REPORT PROCEDURE: XR SPINE CERVICAL 2-3V TECHNIQUE: Cervical spine radiographs, AP, lateral, and open-mouth odontoid views. CPT 14746 HISTORY: neck pain COMPARISON: No prior studies are available for comparison. FINDINGS: Prevertebral soft tissues: Normal . Alignment: Normal . Vertebral body heights/Disk spaces: Normal . Fracture(s): None . Facets: Normal . Bone mineralization: Normal . IMPRESSION: Normal Examination
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
[2018-12-24 04:23] VITALS: BP 168/87
== END 2018-12-24 04:23 | disposition home or self-care (01) ==
LOC: ED 21:44
DX: M54.2 Cervicalgia (principal); M54.5 Low back pain; I10 Essential (primary) hypertension; E11.9 Type 2 diabetes mellitus without complications; J45.909 Unspecified asthma, uncomplicated; E78.00 Pure hypercholesterolemia, unspecified; G89.29 Other chronic pain; E66.01 Morbid (severe) obesity due to excess calories; Z68.39 Body mass index [BMI] 39.0-39.9, adult; Z90.710 Acquired absence of both cervix and uterus; Z79.899 Other long term (current) drug therapy; Z88.0 Allergy status to penicillin
CPT/HCPCS: 72040; 99283